=== PATIENT | male | born 1950 | race African-American/Black ===

== ENCOUNTER 2024-07-02 12:58 | Day surgery (SDC) | payer OTHER ==
[2024-06-29 09:57] VITALS: BMI 27.1
[2024-07-02 14:17] LABS: Anion Gap 12 mmol/L (10-20); BUN (Urea Nitrogen) 16 mg/dL (8.4-25.7); Calc. Creatinine Clearance 50 mL/min (70-130); Calcium 9.5 mg/dL (7.8-10.44); Carbon Dioxide 25 mmol/L (23-31); Chloride 111 mmol/L (98-107); Estimated GFR 44; Glucose 123 mg/dL (83-110); Potassium 4.2 mmol/L (3.5-5.1); Sodium 144 mmol/L (136-145)
[2024-07-02] MEDS ORDERED: Magnevist 469MG/ML 20 ML VIAL ONE (15:26)
== END 2024-07-02 16:23 | disposition home or self-care (01) ==
LOC: MRI 12:58
DX: K76.9 Liver disease, unspecified (principal); I10 Essential (primary) hypertension; E78.5 Hyperlipidemia, unspecified; E11.9 Type 2 diabetes mellitus without complications; K21.9 Gastro-esophageal reflux disease without esophagitis; N40.0 Benign prostatic hyperplasia without lower urinary tract symptoms; F17.200 Nicotine dependence, unspecified, uncomplicated; Z88.8 Allergy status to other drugs, medicaments and biological substances; Z79.899 Other long term (current) drug therapy
CPT/HCPCS: 74183; 80048; 93005; 93010